=== PATIENT | male | born 1980 | race American Indian/Alaskan Native ===

== ENCOUNTER 2016-04-17 20:52 | Emergency (ER) | payer BC ==
[2016-04-17 22:25] LABS: Basophils % (Auto) 0.5 % (0.0-1.8); Eosinophils % (Auto) 1.4 % (0.0-4.3); Hematocrit 38.8 % (35.5-45.6); Hemoglobin 12.8 gm/dl (11.8-15.2); Mean Corpuscular HGB Conc 33 % (32-34); Mean Corpuscular Hemoglobin 30 pg (28-32); Mean Corpuscular Volume 89 fl (84-94); Platelet Count 315 K/mm3 (140-440); Red Blood Count 4.34 M/mm3 (3.65-5.03); Red Cell Distribution Width 14.5 % (13.2-15.2)
[2016-04-17 22:38] LABS: Calcium 9.3 mg/dL (8.4-10.2); Chloride 100.2 mmol/L (98-107); Potassium 4.5 mmol/L (3.6-5.0)
--- NOTE | 2016-04-18 02:39 | Emergency Department Report ---
ED Chest Pain HPI - General Chief Complaint: Dyspnea/Respdistress Stated Complaint: RIGHT SIDE PAIN Time Seen by Provider: 04/18/16 00:58 Source: patient Mode of arrival: Ambulatory Limitations: No Limitations - History of Present Illness Initial Comments: 35-year-old male with a past medical history hypertension and peritoneal dialysis presents to the hospital complaining of right-sided chest pain that started 1 day. Pain is right-sided, sharp, worse with deep inspiration, movement, and cough. Pain rated 8/10 intensity. No specific alleviating factor support the patient states the pain has decreased. Pain started just prior to starting dialysis so patient did not complete his dialysis today due to pain. One episode of vomiting prior to arrival. No nausea, shortness of breath, persistent cough, or fever. URI symptoms reported about 1 week ago. Patient's physicians are not affiliated with this Hospital. Severity scale (0 -10): 7 - Related Data Previous Rx's Medication Instructions Recorded Last Taken Type HYDROcodone/APAP 5-325 [Blanch 1 each PO Q8HR PRN #15 tablet 04/18/16 Unknown Rx 5/325] Allergies Allergy/AdvReac Type Severity Reaction Status Date / Time No Known Allergies Allergy Verified 04/17/16 21:42 ROBBI score - Robbi Score Age > 65: (0) No Aspirin use within the Past 7 Days: (0) No 3 or more CAD Risk Factors: (0) No 2 or more Angina events in past 24 hrs: (0) No Known CAD with more than 50% Stenosis: (0) No Elevated Cardiac Markers: (0) No ST Deviation Greater than 0.5mm: (0) No ROBBI Score: 0 ED Review of Systems ROS: Stated complaint: RIGHT SIDE PAIN Other details as noted in HPI Comment: All other systems reviewed and negative Other: Constitutional: No fevers chills Eyes: No eye pain visual changes ENT: No ear pain or throat pain Neck: Denies pain Respiratory: Denies cough wheezing shortness of breath Cardiovascular: Denies palpitations, syncope GI: Denies abdominal pain, nausea, vomiting, diarrhea : Denies dysuria Musculoskeletal: Denies back pain Skin: Denies rash, lesions, erythema Neurologic: Denies headache, numbness, weakness Psychiatric: Denies suicidal ideation, hallucinations ED Past Medical Hx - Past Medical History Previous Medical History?: Yes Hx Hypertension: Yes Additional medical history: PERITONEAL - Surgical History Past Surgical History?: Yes Additional Surgical History: PERITONEAL CATH - Social History Smoking Status: Never Smoker Substance Use Type: None - Medications Home Medications: Home Medications Medication Instructions Recorded Confirmed Last Taken Type HYDROcodone/APAP 5-325 [Blanch 1 each PO Q8HR PRN #15 tablet 04/18/16 Unknown Rx 5/325] ED Physical Exam - General Limitations: No Limitations - Other Other exam information: General: No limitations, patient is alert in no acute distress Head exam: Atraumatic, normocephalic Eyes exam: Normal appearance, pupils equal reactive to light, extraocular movements intact ENT: Moist mucous membrane, normal oropharynx Neck exam: Normal inspection, full range of motion, no meningismus nontender Respiratory exam: Clear to auscultation bilateral, no wheezes, rales, crackles, chest wall nontender Cardiovascular: Normal rate and rhythm, normal heart sounds Abdomen: Soft, nondistended, and nontender, with normal bowel sounds, no rebound, or guarding Extremity: Full range of motion normal inspection no deformity Back: Normal Inspection, full range of motion, no tenderness Neurologic: Alert, oriented x3, cranial nerves intact, no motor or sensory deficit Psychiatric: normal affect, normal mood Skin: Warm, dry, intact ED Course Vital Signs 04/17/16 04/17/16 04/18/16 21:23 21:43 00:15 Temperature 98.2 F 98.2 F 97.8 F Pulse Rate 102 H 102 H 97 H Respiratory 22 22 22 Rate Blood Pressure 137/94 Blood Pressure 137/94 146/90 [Right] O2 Sat by Pulse 100 100 99 Oximetry 04/18/16 00:58 Temperature Pulse Rate Respiratory 22 Rate Blood Pressure Blood Pressure [Right] O2 Sat by Pulse 99 Oximetry ED Medical Decision Making - Lab Data Result diagrams: 04/17/16 22:04 04/17/16 22:04 Lab Results 04/17/16 04/17/16 04/18/16 Range/Units 22:04 22:04 01:15 WBC 8.0 (4.5-11.0) K/mm3 RBC 4.34 (3.65-5.03) M/mm3 Hgb 12.8 (11.8-15.2) gm/dl Hct 38.8 (35.5-45.6) % MCV 89 (84-94) fl MCH 30 (28-32) pg MCHC 33 (32-34) % RDW 14.5 (13.2-15.2) % Plt Count 315 (140-440) K/mm3 Lymph % (Auto) 14.3 (13.4-35.0) % [place] % (Auto) 6.4 (0.0-7.3) % Eos % (Auto) 1.4 (0.0-4.3) % Baso % (Auto) 0.5 (0.0-1.8) % Lymph # 1.1 L (1.2-5.4) K/mm3 [place] # 0.5 (0.0-0.8) K/mm3 Eos # 0.1 (0.0-0.4) K/mm3 Baso # 0.0 (0.0-0.1) K/mm3 Seg Neutrophils % 77.4 H (40.0-70.0) % Seg Neutrophils # 6.2 (1.8-7.7) K/mm3 D-Dimer 435.24 H (0-234) ng/mlDDU Sodium 141 (137-145) mmol/L Potassium 4.5 (3.6-5.0) mmol/L Chloride 100.2 (98-107) mmol/L Carbon Dioxide 23 (22-30) mmol/L Anion Gap 22 mmol/L BUN 55 H (9-20) mg/dL Creatinine 11.0 H (0.8-1.5) mg/dL Estimated GFR 5 ml/min BUN/Creatinine Ratio 5.00 % Glucose 113 H (75-100) mg/dL Calcium 9.3 (8.4-10.2) mg/dL - EKG Data -: EKG Interpreted by Me (nsr rate 85) - Radiology Data Radiology results: report reviewed (VQ scan: Normal), image reviewed (chest x- ray:naf) - Medical Decision Making Patient elevated d-dimer but no PE/DVT risk factors and a negative V/Q exam. No signs of DVT clinically. Patient be treated symptomatically and encouraged to follow up with primary care doctor. Patient declined offer for pain medication in ED since improved on its own. Based on labs and chest x-ray patient does not require emergent dialysis and stable for discharge to continue his peritoneal dialysis - Differential Diagnosis PE, pleuritic chest pain, pneumonia, pneumothorax, pleural effusion Critical Care Time: No Critical care attestation.: If time is entered above; I have spent that time in minutes in the direct care of this critically ill patient, excluding procedure time. ED Disposition Clinical Impression: Pleuritic chest pain, ESRD on peritoneal dialysis Disposition: DISCHARGED TO HOME OR SELFCARE Is pt being admited?: No Does the pt Need Aspirin: No Condition: Stable Instructions: Pleurisy (ED), End-Stage Kidney Disease (ED) Additional Instructions: Take the medication as prescribed. Return if symptoms worsen. Continue peritoneal dialysis at home Prescriptions: HYDROcodone/APAP 5-325 [Blanch 5/325] 1 each PO Q8HR PRN #15 tablet PRN Reason: Pain Referrals: PRIMARY CARE, [Primary Care Provider] - 3-5 Days Time of Disposition: 05:10
--- NOTE | 2016-04-18 03:30 | Nuclear Medicine Report ---
FINAL REPORT PROCEDURE: NM LUNG SCAN PERF/VENT TECHNIQUE: Five mCi Tc-99m MAA was injected IV for pulmonary perfusion imaging in multiple projections. Fifteen mCi Xenon 133 gas was inhaled for pulmonary ventilation imaging in multiple projections. Injection site: RIGHT antecubital fossa. CPT 44478 HISTORY: right pleuritic cp, ddimer elevation COMPARISON: No prior studies are available for comparison. FINDINGS: Perfusion: No defects . Ventilation: No defects . IMPRESSION: Normal Examination
[2016-04-18 06:28] VITALS: BP 144/99
--- NOTE | 2016-04-18 07:50 | Emergency Department Report ---
Blank Doc - Documentation Documentation: Received call from radiology stating chest x-ray performed 04/17/2016 at 21:58 is concerning for free air under the diaphragm on both sides. Chart was reviewed and discussed radiology as patient receives peritoneal dialysis. Radiology states that this may or may not be significant. According to the documentation from [facility] visit his abdomen was soft and nontender without rebound or guarding. I attempted to contact the patient with the telephone number on file ([phone]) but there was no answer and the patient's voice mail was full. An SMS with the telephone #[phone] was sent to the phone. Charge nurse was notified of radiologist finding and need to contact patient for reassessment
--- NOTE | 2016-04-18 10:08 | XRay Report ---
CHEST 2 VIEWS INDICATION: Shortness of breath, right-sided pain. COMPARISON: None similar at this institution. FINDINGS: PA and lateral chest radiographs demonstrate normal cardiomediastinal silhouette. Clear lungs without pleural effusion or CHF. Subtle lucency beneath the diaphragm though suspicious for pneumoperitoneum. Slight mid to lower thoracic curvature, possibly positional versus scoliosis. CONCLUSION: Pneumoperitoneum suspected, as described. Please correlate clinically and further with CT, if warranted. I phoned the above results to Dr. Galeano in the ER, 7:30 AM, 04/18/2016 at the time of this interpretation. He provided additional history of patient being on peritoneal dialysis with recent clinical notes indicating a nonacute abdomen. Thank you for the opportunity to participate in this patient's care.
== END 2016-04-18 06:28 | disposition home or self-care (01) ==
LOC: EDSEX → ED 20:52
DX: R07.89 Other chest pain (principal); I12.0 Hypertensive chronic kidney disease with stage 5 chronic kidney disease or end stage renal disease; N18.6 End stage renal disease
CPT/HCPCS: 36415; 71020; 78582; 80048; 85025; 85379; 93005; 93010; 99284; A9540; A9558

== ENCOUNTER 2016-06-10 10:50 | Outpatient (CLI) | payer BC ==
--- NOTE | 2016-06-10 12:18 | XRay Report ---
ROUTINE CHEST, TWO VIEWS: History: Left pleuritic chest pain. PA and lateral views demonstrate the heart and mediastinal contour to be of normal size and shape. The lungs are clear and fully expanded and the soft tissues and bony structures are normal. IMPRESSION: Normal study. Comment: Pneumoperitoneum is again noted as on a previous study dated April 17, 2016. This is due to the peritoneal dialysis catheter.
== END 2016-06-10 10:51 | disposition home or self-care (01) ==
LOC: XRAY 10:50
PROVIDERS: ATTEND Internal Medicine Nephrology
DX: R07.89 Other chest pain (principal); N18.6 End stage renal disease; R80.9 Proteinuria, unspecified; M54.9 Dorsalgia, unspecified; Z71.3 Dietary counseling and surveillance
CPT/HCPCS: 71020

== ENCOUNTER 2019-06-20 15:51 | Emergency (ER) | payer SELFPAY ==
[2019-06-20 16:33] LABS: Hematocrit 35.5 % (35.5-45.6); Hemoglobin 11.9 gm/dl (11.8-15.2); Mean Corpuscular HGB Conc 34 % (32-34); Mean Corpuscular Volume 93 fl (84-94); Platelet Count 186 K/mm3 (140-440); Red Blood Count 3.83 M/mm3 (3.65-5.03); Red Cell Distribution Width 15.7 % (13.2-15.2)
[2019-06-20 16:49] LABS: INR 0.92 (0.87-1.13)
[2019-06-20 16:53] LABS: Partial Thromboplastin Time 37.1 Sec. (24.2-36.6)
[2019-06-20 17:41] LABS: Calcium 9.8 mg/dL (8.4-10.2)
--- NOTE | 2019-06-20 18:16 | Emergency Department Report ---
ED Recheck HPI - General Chief Complaint: Medical Clearance Stated Complaint: DIALYSIS ACCESS BLEEDING Time Seen by Provider: 06/20/19 18:16 Source: patient Mode of arrival: Ambulatory Limitations: No Limitations - History of Present Illness Initial Comments: Patient is a 39-year-old -[place] male who comes to the ER complaining of bleeding around his right subclavian Vas-Cath. The [facility] [place]. Since then he has had some oozing. Dressing is not saturated. By the time the patient was seen in [facility] his coags had resulted and they were normal. And the bleeding had stopped at the catheter site. -: hour(s) Initial Visit For: other Symptoms Since Prior Visit: no new symptoms Associated Symptoms: none - Related Data Previous Rx's Medication Instructions Recorded Last Taken Type HYDROcodone/APAP 5-325 [[place] 1 each PO Q8HR PRN #15 tablet 04/18/16 Unknown Rx 5/325] Allergies Allergy/AdvReac Type Severity Reaction Status Date / Time lisinopril AdvReac Swelling Unverified 06/10/16 10:51 ED Review of Systems ROS: Stated complaint: DIALYSIS ACCESS BLEEDING Other details as noted in HPI Comment: All other systems reviewed and negative ED Past Medical Hx - Past Medical History Previous Medical History?: Yes Hx Hypertension: Yes Hx Renal Disease: Yes Additional medical history: PERITONEAL - Surgical History Past Surgical History?: Yes Additional Surgical History: PERITONEAL CATH - Family History Family history: no significant - Social History Smoking Status: Never Smoker Substance Use Type: None - Medications Home Medications: Home Medications Medication Instructions Recorded Confirmed Last Taken Type HYDROcodone/APAP 5-325 [[place] 1 each PO Q8HR PRN #15 tablet 04/18/16 Unknown Rx 5/325] ED Physical Exam - General Limitations: No Limitations General appearance: alert, in no apparent distress - Head Head exam: Present: atraumatic, normocephalic - Eye Eye exam: Present: normal appearance - ENT ENT exam: Present: mucous membranes moist - Neck Neck exam: Present: normal inspection - Respiratory Respiratory exam: Present: normal lung sounds bilaterally. Absent: respiratory distress - Cardiovascular Cardiovascular Exam: Present: regular rate, normal rhythm. Absent: systolic murmur, diastolic murmur, rubs, gallop - GI/Abdominal GI/Abdominal exam: Present: soft, normal bowel sounds - Rectal Rectal exam: Present: deferred - Extremities Exam Extremities exam: Present: normal inspection - Back Exam Back exam: Present: normal inspection - Neurological Exam Neurological exam: Present: alert, oriented X3 - Psychiatric Psychiatric exam: Present: normal affect, normal mood - Skin Skin exam: Present: warm, dry, normal color, other. Absent: rash ED Course Vital Signs 06/20/19 06/20/19 15:54 15:58 Temperature 98.1 F 98.1 F Pulse Rate 85 Respiratory 20 99 H Rate Blood Pressure 150/110 [Right] ED Recheck MDM - Core Measures Measure Exclusions: not indicated - Differential Diagnosis Wound Recheck Rule out coagulopathy - Medical Decision Making Vital Signs 06/20/19 06/20/19 15:54 15:58 Temperature 98.1 F 98.1 F Pulse Rate 85 Respiratory 20 99 H Rate Blood Pressure 150/110 [Right] Labs 06/20/19 06/20/19 06/20/19 16:09 16:09 16:09 WBC 4.9 RBC 3.83 Hgb 11.9 Hct 35.5 MCV 93 MCH 31 MCHC 34 RDW 15.7 H Plt Count 186 PT 12.5 INR 0.92 APTT 37.1 H Sodium Potassium Chloride Carbon Dioxide Anion Gap BUN Creatinine Estimated GFR BUN/Creatinine Ratio Glucose Calcium NT-Pro-B Natriuret Pep 1737 H 06/20/19 17:03 WBC RBC Hgb Hct MCV MCH MCHC RDW Plt Count PT INR APTT Sodium 140 Potassium 3.4 L Chloride 96.1 L Carbon Dioxide 28 Anion Gap 19 BUN 31 H Creatinine 10.8 H Estimated GFR 6 BUN/Creatinine Ratio 3 Glucose 78 Calcium 9.8 NT-Pro-B Natriuret Pep HD TODAY LABS NOTED COAGS NORMAL R SCLAVIAN SITE WITHOUT BLEEDING DRESSING CHANGED PER RN PT EDUCATED ON DC POC AND CARE OF SITE DC HOME WITH NEPHROLOGY FOLLOW UP IN AM NO CP NO SOB NO FEVER OR CHILLS AMBULATORY AND NON TOXIC Critical care attestation.: If time is entered above; I have spent that time in minutes in the direct care of this critically ill patient, excluding procedure time. ED Disposition Clinical Impression: Bleeding at insertion site, Chronic hypertension, ESRD (end stage renal disease) Disposition: DC-01 TO HOME OR SELFCARE Is pt being admited?: No Does the pt Need Aspirin: No Condition: Stable Instructions: Hypertension (ED) Additional Instructions: IF AREA BLEEDS AGAIN- APPLY PRESSURE OVER THE INSERTION SITE AND THEN ICE PACK FOLLOW UP WITH KIDNEY MD IN AM FOR RECHECK AVOID ASPIRIN OR MOTRIN TONIGHT Time of Disposition: 18:18
[2019-06-20 19:10] VITALS: BP 150/98
== END 2019-06-20 19:10 | disposition home or self-care (01) ==
LOC: ED 15:51
DX: I12.0 Hypertensive chronic kidney disease with stage 5 chronic kidney disease or end stage renal disease (principal); N18.6 End stage renal disease; Z99.2 Dependence on renal dialysis; Z79.899 Other long term (current) drug therapy; Z88.6 Allergy status to analgesic agent
CPT/HCPCS: 36415; 80048; 83880; 85027; 85610; 85730